=== PATIENT | female | born 1935 | race Caucasian/White ===

== ENCOUNTER → 2017-10-10 | Outpatient (CLI) | payer OTHER | LOC: HYPER 10-08 15:51 | DX: S80.811A Abrasion, right lower leg, initial encounter (principal); E11.9 Type 2 diabetes mellitus without complications; M19.90 Unspecified osteoarthritis, unspecified site; Z87.891 Personal history of nicotine dependence; Y99.8 Other external cause status; Y92.89 Other specified places as the place of occurrence of the external cause; Y93.89 Activity, other specified; X58.XXXA Exposure to other specified factors, initial encounter ==

== ENCOUNTER → 2017-10-24 | Outpatient (CLI) | payer OTHER | LOC: HYPER 06:49 | DX: S81.812D Laceration without foreign body, left lower leg, subsequent encounter (principal); S80.11XD Contusion of right lower leg, subsequent encounter; E11.9 Type 2 diabetes mellitus without complications; M19.90 Unspecified osteoarthritis, unspecified site; Z87.891 Personal history of nicotine dependence; X58.XXXD Exposure to other specified factors, subsequent encounter ==

== ENCOUNTER → 2017-11-07 | Outpatient (CLI) | payer OTHER | LOC: HYPER 06:41 | DX: S80.811D Abrasion, right lower leg, subsequent encounter (principal); S81.802D Unspecified open wound, left lower leg, subsequent encounter; L03.115 Cellulitis of right lower limb; S91.302A Unspecified open wound, left foot, initial encounter; M19.90 Unspecified osteoarthritis, unspecified site; E11.9 Type 2 diabetes mellitus without complications; Z87.891 Personal history of nicotine dependence; X58.XXXA Exposure to other specified factors, initial encounter; Y93.89 Activity, other specified; Y92.89 Other specified places as the place of occurrence of the external cause; X58.XXXD Exposure to other specified factors, subsequent encounter ==

== ENCOUNTER → 2017-11-21 | Outpatient (CLI) | payer OTHER | LOC: HYPER 06:37 | DX: S80.811D Abrasion, right lower leg, subsequent encounter (principal); S81.802D Unspecified open wound, left lower leg, subsequent encounter; S91.301D Unspecified open wound, right foot, subsequent encounter; E11.9 Type 2 diabetes mellitus without complications; M19.90 Unspecified osteoarthritis, unspecified site; Z87.891 Personal history of nicotine dependence; X58.XXXD Exposure to other specified factors, subsequent encounter ==

== ENCOUNTER → 2017-12-05 | Outpatient (CLI) | payer OTHER | LOC: HYPER 06:54 | DX: S81.812D Laceration without foreign body, left lower leg, subsequent encounter (principal); S91.301D Unspecified open wound, right foot, subsequent encounter; S80.811D Abrasion, right lower leg, subsequent encounter; M19.90 Unspecified osteoarthritis, unspecified site; L84 Corns and callosities; Z87.891 Personal history of nicotine dependence; X58.XXXD Exposure to other specified factors, subsequent encounter ==

== ENCOUNTER → 2017-12-19 | Outpatient (CLI) | payer OTHER | LOC: HYPER 08:15 | DX: S81.812D Laceration without foreign body, left lower leg, subsequent encounter (principal); S80.811D Abrasion, right lower leg, subsequent encounter; E11.621 Type 2 diabetes mellitus with foot ulcer; L97.511 Non-pressure chronic ulcer of other part of right foot limited to breakdown of skin; L89.893 Pressure ulcer of other site, stage 3; R21 Rash and other nonspecific skin eruption; R60.9 Edema, unspecified; M19.90 Unspecified osteoarthritis, unspecified site; Z87.891 Personal history of nicotine dependence; Z79.84 Long term (current) use of oral hypoglycemic drugs; X58.XXXD Exposure to other specified factors, subsequent encounter ==

== ENCOUNTER → 2018-01-07 | Outpatient (CLI) | payer OTHER | LOC: HYPER 07:01 | DX: S81.802D Unspecified open wound, left lower leg, subsequent encounter (principal); S91.301D Unspecified open wound, right foot, subsequent encounter; E11.9 Type 2 diabetes mellitus without complications; M19.90 Unspecified osteoarthritis, unspecified site; Z87.891 Personal history of nicotine dependence; X58.XXXD Exposure to other specified factors, subsequent encounter ==

== ENCOUNTER → 2018-01-28 | Outpatient (CLI) | payer OTHER | LOC: HYPER 07:03 | DX: S81.812D Laceration without foreign body, left lower leg, subsequent encounter (principal); S91.301D Unspecified open wound, right foot, subsequent encounter; L89.890 Pressure ulcer of other site, unstageable; R60.9 Edema, unspecified; R21 Rash and other nonspecific skin eruption; M19.90 Unspecified osteoarthritis, unspecified site; Z79.84 Long term (current) use of oral hypoglycemic drugs; Z87.891 Personal history of nicotine dependence; X58.XXXD Exposure to other specified factors, subsequent encounter ==

== ENCOUNTER → 2018-04-03 | Outpatient (CLI) | payer OTHER | LOC: HYPER 06:45 | DX: S81.812D Laceration without foreign body, left lower leg, subsequent encounter (principal); S91.301D Unspecified open wound, right foot, subsequent encounter; E11.621 Type 2 diabetes mellitus with foot ulcer; L97.411 Non-pressure chronic ulcer of right heel and midfoot limited to breakdown of skin; L89.613 Pressure ulcer of right heel, stage 3; R21 Rash and other nonspecific skin eruption; R60.9 Edema, unspecified; M19.90 Unspecified osteoarthritis, unspecified site; Z79.84 Long term (current) use of oral hypoglycemic drugs; Z87.891 Personal history of nicotine dependence; X58.XXXD Exposure to other specified factors, subsequent encounter ==

== ENCOUNTER → 2018-04-24 | Outpatient (CLI) | payer OTHER | LOC: HYPER 07:05 | DX: L89.613 Pressure ulcer of right heel, stage 3 (principal); S81.802D Unspecified open wound, left lower leg, subsequent encounter; M19.90 Unspecified osteoarthritis, unspecified site; Z79.84 Long term (current) use of oral hypoglycemic drugs; Z87.891 Personal history of nicotine dependence; X58.XXXD Exposure to other specified factors, subsequent encounter ==

== ENCOUNTER → 2018-05-13 | Outpatient (CLI) | payer OTHER | LOC: HYPER 07:29 | DX: E11.621 Type 2 diabetes mellitus with foot ulcer (principal); L89.613 Pressure ulcer of right heel, stage 3; L97.411 Non-pressure chronic ulcer of right heel and midfoot limited to breakdown of skin; M19.90 Unspecified osteoarthritis, unspecified site; Z79.84 Long term (current) use of oral hypoglycemic drugs; Z87.891 Personal history of nicotine dependence ==

== ENCOUNTER → 2018-06-03 | Outpatient (CLI) | payer OTHER | LOC: HYPER 06:54 | DX: E11.621 Type 2 diabetes mellitus with foot ulcer (principal); L97.411 Non-pressure chronic ulcer of right heel and midfoot limited to breakdown of skin; L89.613 Pressure ulcer of right heel, stage 3; S80.11XD Contusion of right lower leg, subsequent encounter; M19.90 Unspecified osteoarthritis, unspecified site; Z87.891 Personal history of nicotine dependence; Z79.84 Long term (current) use of oral hypoglycemic drugs; X58.XXXD Exposure to other specified factors, subsequent encounter ==

== ENCOUNTER → 2019-09-25 | Outpatient (CLI) | payer OTHER ==
[~2019-09-25] VITALS: Ht 149.9 cm; Wt 60.8 kg
[~2019-09-25] MED LIST: ASA81BEC PO; CLONAZEPAM 0.50.5 M1 PO; CYMBALTA60 MG PO; INDERAL LA 80 M80 M1 PO; JANUVIA100 MG PO; LIPITOR10 MG PO; LYRICA100 MG PO; NEXIUM40 MG PO; NORVASC5 MG PO; PROPYLTHIOURACI50 MG PO; TORSEMIDE10 MG PO; TRAMADOL 50 MG50 MG PO; VITAMIN D32000 UNIT PO
--- NOTE | ~2019-09-25 | P ---
[facility] [place] [address] PROCEDURE REPORT Name: AMELIA CORBETT [id number] Admission: 09/25/19 Attend Phys: Clint Russo MD Discharge: Date of : 35 Report #: [id number] THIS REPORT FOR: //name// CC: Albert Russo DATE OF SERVICE: 09/25/2019 BRIEF HISTORY: The patient is an 84-year-old woman who has a recent finding of iron deficiency anemia. She also feels that there is a structure in her rectum. She says it "feels as hard as bone." POSTOPERATIVE DIAGNOSES: 1. Multiple colon polyps. 2. Patchy proctitis. MEDICATIONS: Deep sedation with propofol per anesthesia. SPECIMENS: 1. Polyps x 2, cecum. 2. Polyp, hepatic flexure. 3. Biopsies of patchy proctitis. MEDICATIONS: Deep sedation with propofol per Anesthesia. ESTIMATED BLOOD LOSS: 3 mL. PROCEDURE: Colonoscopy to cecum and terminal ileum with snare polypectomy and biopsy. FINDINGS: Prior to propofol sedation, procedure of colonoscopy discussed with the patient as well as potential risks and its complications. She indicates she understands and desires to proceed. DESCRIPTION OF PROCEDURE: With the patient in left lateral decubitus position, digital examination was completed, which revealed no abnormalities. Specifically, I did not feel any mass lesions in the rectum. As far as the sensation she reports, she may be feeling the coccyx. Subsequently, the Olympus video colonoscope was introduced in the rectum, advanced under direct vision to the cecum. This was done with some difficulty through a tortuous redundant colon. Cecum was identified by the ileocecal valve and the appendiceal orifice. I was able to visualize the distal segment of terminal ileum, which was inspected and noted to be unremarkable. At that point, the scope was slowly withdrawn and careful circumferential views were obtained including retroflexing the scope through the ascending colon. Upon slow withdrawal of the scope, the [facility] [address] [place] [address] PROCEDURE REPORT Name: AMEILA CORBETT Room #: REG [facility].#: [id number] Admission: 09/25/19 Attend Phys: Clint Russo MD Discharge: Date of : 35 Report #: [id number] prep was somewhat limited. There was some liquidy stool scattered about. We irrigated and suctioned as much as possible. For the most part, we were able to obtain a reasonably good prep. However, in a couple areas we could not clean up all the material and a small lesion could have been overlooked. As we withdrew the scope, she was found to have a diminutive polyp in the cecum, removed with biopsy forceps and also a 5 mm flat polyp removed by cold snare polypectomy. As the scope was withdrawn, a diminutive polyp was seen and removed with biopsy forceps the hepatic flexure. The scope was further withdrawn and she was noted to have a tortuous and dilated proximal colon suggestive of chronic constipation. However, the mucosa remained within normal limits, normal vascular pattern, normal light reflex. The scope was withdrawn in the rectum and there was a patchy area of proctitis with very punctate ulcerations. This patchy area was about 2 x 2 cm. It had a benign appearance. The remainder of the rectum was unremarkable. On retroflexion, no additional abnormalities were seen. Multiple biopsies obtained of the proctitis. The patient tolerated the procedure well. CONDITION OF THE PATIENT UPON DISCHARGE: Following procedure, the patient drowsy, aroused, conversant and will be discharged home when fully ambulatory. INSTRUCTIONS TO THE PATIENT AND FAMILY AT THE TIME OF DISCHARGE: We will follow up on the pathology. The polyps were all small and had benign appearance. The patient is 84 years old. At this point in life, there is likely minimal benefit from continued surveillance colonoscopy. As far as the proctitis, an obvious etiology is not identified. We will follow up on the path. This is somewhat of an unusual presentation. The patient does report that she does place her finger in the rectum. We will discuss further whether she is inserting any other object into the rectum, which may have caused the proctitis. As far as this hard bony like structure, I do not see or feel anything other than the coccyx. At this point in time, we will treat empirically with hydrocortisone suppositories. She should return to see me in followup in the office. If she continues with rectal symptoms, rectal manometry may be helpful. Withdrawal time from the cecum was 18 minutes 19 seconds. By: 1152 1315 Clint Russo MD /nt
--- NOTE | ~2019-09-25 | P ---
[facility] [place] [address] PROCEDURE REPORT Name: AMELIA CORBETT Room #: REG [facility] Fede.#: [id number] Admission: 09/25/19 Attend Phys: Clint Russo MD Discharge: Date of : 35 Report #: [id number] THIS REPORT FOR: //name// CC: Albert Russo BRIEF HISTORY: The patient is an 84-year-old woman with findings of iron deficiency anemia. She has no GI symptoms such as heartburn or melanotic stools. PREOPERATIVE DIAGNOSIS: Iron deficiency anemia. POSTOPERATIVE DIAGNOSES: 1. Moderate diffuse gastritis. 2. Moderate hiatus hernia. 3. Tortuous distal esophagus. SPECIMENS: 1. Small bowel biopsies, rule out celiac disease. 2. Biopsies of gastritis. ESTIMATED BLOOD LOSS: 3 mL. PROCEDURE: EGD with biopsy. FINDINGS: Prior to propofol sedation, procedure of upper endoscopy discussed with the patient as well as potential risks and its complications. She indicates she understands and desires to proceed. DESCRIPTION OF PROCEDURE: With the patient in left lateral decubitus position, the Olympus video endoscope was inserted in the cervical esophagus under direct vision without difficulty. Examination of this organ through its entire length revealed normal esophageal mucosa down the squamocolumnar junction. Squamocolumnar junction was inspected and noted to be unremarkable. In addition, the mid esophagus was somewhat tortuous. The gastroesophageal junction was about 30 cm. The scope was advanced into the stomach and she was noted to have about a 4 cm sliding type hiatus hernia. The mucosa and hernia was unremarkable. No evidence of bleeding lesions, ulcers or erosions. The scope was advanced fully into the stomach, was examined on end view as well as retroflexed views. There was a pattern of a diffuse moderate linear gastritis. However, there were no ulcers, erosions or mass lesions. Biopsies obtained of the gastritis. AVMs were not seen. Upon retroflexion, the hernia was seen, but no other abnormalities were identified. The pylorus, duodenal bulb, and postbulbar duodenal sweep were inspected and noted to be unremarkable. Small bowel biopsies obtained to evaluate for celiac disease. At that point, the scope was slowly withdrawn and careful circumferential views confirmed the above [facility] [address] [place] [address] PROCEDURE REPORT Name: AMELIA CORBETT Room #: REG [facility].#: [id number] Admission: 09/25/19 Attend Phys: Clint Russo MD Discharge: Date of : 35 Report #: [id number] findings. The patient tolerated the procedure well. CONDITION OF THE PATIENT UPON DISCHARGE: Following procedure, the patient was drowsy and prepared for colonoscopy. INSTRUCTIONS TO THE PATIENT AND FAMILY AT THE TIME OF DISCHARGE: No bleeding lesions. We will follow up on biopsies as noted. Proceed with colonoscopy at this time for further evaluation of iron deficiency anemia. By: 1112 1157 Clint Russo MD /nt
--- NOTE | 2019-09-29 17:06 | PATH ---
[facility] [address] [place] [address] PATHOLOGY RPT PROCEDURE Name: STORMY WEIR Room #: REG JOSE CRUZ Montoya.Adia.#: [id number] Admission: 09/25/19 Date of : 35 Discharge: Report #: [id number] Path Case #: [id number] [facility] Accession Number: [id number] . 01 Material submitted: . PART A: small bowel - BX OF SMALL BOWEL PART B: stomach - BX OF GASTRITIS PART C: cecum - POLYP AT CECUM X2 PART D: hepatic flexure - POLYP AT HEPATIC FLEXURE PART E: rectum - BX OF PROCTITIS NEAR RECTUM . 01 Clinical history: . Pre-op diagnosis: Iron deficiency anemia Post-op diagnosis: Gastritis, hiatal hernia, colon polyps, proctitis A. R/O celiac regarding iron deficiency anemia B. R/O H. pylori . 02 Diagnosis: A. Small bowel mucosa, small bowel rule out celiac disease, endoscopic biopsy: - No diagnostic abnormalities present. - Negative for villous blunting or increase in intraepithelial lymphocytes. . B. Gastric mucosa, gastritis rule out H. pylori, endoscopic biopsy: - Mild reactive gastropathy. - Negative for intestinal metaplasia or dysplasia. - Negative for H. pylori (properly controlled immunohistochemical stain performed). . C. Polyp x2, cecum, endoscopic biopsy: - Tubular adenoma x2. - Negative for high-grade dysplasia. . D. Polyp, at hepatic flexure, endoscopic biopsy: - Tubular adenoma. - Negative for high-grade dysplasia. . E. Large intestinal mucosa, proctitis near rectum, endoscopic biopsy: - Superficial mucosal fragments showing hyperplastic changes. - No intact sample present/obtained for evaluation. - Negative for dysplasia within the hyperplastic mucosa. - Negative for active cryptitis within the superficial sample. . (IUV:inductor tester; 09/29/2019) MBR 09/29/2019 1357 Local . [address] [address] PATHOLOGY RPT PROCEDURE Name: STORMY WEIR [facility] [id number] Admission: 09/25/19 Date of : 35 Discharge: Report #: [id number] Path Case #: [id number] Electronically signed: . Kiana Meyer MD, Pathologist NPI- [id number] . 01 Gross description: . A. The specimen is received in formalin, labeled "Stormy Weir, biopsy of small bowel to R/O celiac". Received are five segments of pale lopez soft tissue ranging in size from 0.4 to 0.5 cm in maximum dimensions. The specimen is submitted entirely in cassette A1. . B. The specimen is received in formalin, labeled "Stormy Bunert, biopsy of gastritis to R/O H. pylori". Received are three segments of pale lopez soft tissue ranging in size from 0.4 to 0.5 cm in maximum dimensions. The specimen is submitted entirely in cassette B1. . C. The specimen is received in formalin, labeled "Stormy Bunert, polyp at cecum". Received are three segments of pale lopez soft tissue ranging in size from 0.3 to 0.5 cm in maximum dimensions. The specimen is submitted entirely in cassette C1. . D. The specimen is received in formalin, labeled "Stormy Bunert, polyp at hepatic flexure". Received is a segment of pale lopez soft tissue measuring 0.5 cm in maximum dimensions. The specimen is submitted entirely in cassette D1. . E. The specimen is received in formalin, labeled "Stormy Bunert, biopsies of proctitis near rectum". Received are two segments of pale lopez soft tissue ranging in size from 0.2 to 0.3 cm in maximum dimensions. The specimen is submitted entirely in cassette E1. (CAA; 09/26/2019) QAC/QAC 09/26/2019 1047 Local . 02 Pathologist provided ICD-10: K31.9, D12.0, D12.3, K44.9, K51.20 . 02 CPT . 413025, 799998, 376638, 297253, 111146 Specimen Comment: A courtesy copy of this report has been sent to [phone], [phone] Specimen Comment: [id number] Specimen Comment: Report sent to / DR SANCHEZ Performed at: 01 [facility] [address] [place] [address] [address], [place], [place] [id number] MD Vasyl Hook MD Phone: [phone] Performed at: 02 [facility] [address] [place], [place] [id number] [facility] [address] [place] [address] PATHOLOGY RPT PROCEDURE Name: STORMY WEIR Room #: REG JOSE CRUZ Mistry.#: [id number] Admission: 09/25/19 Date of : 35 Discharge: Report #: [id number] [facility] Case #: [id number] MD Kiana Meyer MA Phone: [phone]
== END | disposition home or self-care (01) ==
LOC: GI 09:55
DX: D50.9 Iron deficiency anemia, unspecified (principal); D12.0 Benign neoplasm of cecum; D12.3 Benign neoplasm of transverse colon; K51.20 Ulcerative (chronic) proctitis without complications; K31.9 Disease of stomach and duodenum, unspecified; K29.70 Gastritis, unspecified, without bleeding; K44.9 Diaphragmatic hernia without obstruction or gangrene; K22.8 Other specified diseases of esophagus; K21.9 Gastro-esophageal reflux disease without esophagitis; I10 Essential (primary) hypertension; E11.9 Type 2 diabetes mellitus without complications; E78.5 Hyperlipidemia, unspecified; I73.9 Peripheral vascular disease, unspecified; D64.9 Anemia, unspecified; F32.9 Major depressive disorder, single episode, unspecified; Z98.890 Other specified postprocedural states; Z79.899 Other long term (current) drug therapy; Z88.0 Allergy status to penicillin; Z91.041 Radiographic dye allergy status; Z88.2 Allergy status to sulfonamides; Z88.8 Allergy status to other drugs, medicaments and biological substances; Z79.82 Long term (current) use of aspirin
CPT/HCPCS: 62110; 62900

== ENCOUNTER → 2019-10-27 | Outpatient (CLI) | payer OTHER | LOC: HYPER 13:48 | DX: E11.622 Type 2 diabetes mellitus with other skin ulcer (principal); L97.812 Non-pressure chronic ulcer of other part of right lower leg with fat layer exposed; L97.211 Non-pressure chronic ulcer of right calf limited to breakdown of skin; L97.222 Non-pressure chronic ulcer of left calf with fat layer exposed; S91.114A Laceration without foreign body of right lesser toe(s) without damage to nail, initial encounter; I89.0 Lymphedema, not elsewhere classified; I87.2 Venous insufficiency (chronic) (peripheral); E07.89 Other specified disorders of thyroid; R60.0 Localized edema; M48.00 Spinal stenosis, site unspecified; M19.90 Unspecified osteoarthritis, unspecified site; F41.9 Anxiety disorder, unspecified; Z87.891 Personal history of nicotine dependence; Z79.84 Long term (current) use of oral hypoglycemic drugs; X58.XXXA Exposure to other specified factors, initial encounter; Y93.89 Activity, other specified; Y92.89 Other specified places as the place of occurrence of the external cause; Y99.8 Other external cause status ==

== ENCOUNTER → 2019-11-17 | Outpatient (CLI) | payer OTHER | LOC: HYPER 13:20 | DX: E11.622 Type 2 diabetes mellitus with other skin ulcer (principal); L97.212 Non-pressure chronic ulcer of right calf with fat layer exposed; S91.114D Laceration without foreign body of right lesser toe(s) without damage to nail, subsequent encounter; I89.0 Lymphedema, not elsewhere classified; R21 Rash and other nonspecific skin eruption; E07.89 Other specified disorders of thyroid; I10 Essential (primary) hypertension; I87.2 Venous insufficiency (chronic) (peripheral); R60.0 Localized edema; M48.00 Spinal stenosis, site unspecified; M19.90 Unspecified osteoarthritis, unspecified site; F41.9 Anxiety disorder, unspecified; Z79.84 Long term (current) use of oral hypoglycemic drugs; Z87.891 Personal history of nicotine dependence; X58.XXXD Exposure to other specified factors, subsequent encounter ==

== ENCOUNTER → 2019-12-01 | Outpatient (CLI) | payer OTHER | LOC: HYPER 11:58 | DX: E11.622 Type 2 diabetes mellitus with other skin ulcer (principal); L97.212 Non-pressure chronic ulcer of right calf with fat layer exposed; S41.102A Unspecified open wound of left upper arm, initial encounter; S41.101A Unspecified open wound of right upper arm, initial encounter; S91.114A Laceration without foreign body of right lesser toe(s) without damage to nail, initial encounter; I87.2 Venous insufficiency (chronic) (peripheral); I89.0 Lymphedema, not elsewhere classified; R21 Rash and other nonspecific skin eruption; M19.90 Unspecified osteoarthritis, unspecified site; F41.9 Anxiety disorder, unspecified; Z87.891 Personal history of nicotine dependence; Z79.84 Long term (current) use of oral hypoglycemic drugs; X58.XXXA Exposure to other specified factors, initial encounter; Y93.89 Activity, other specified; Y92.89 Other specified places as the place of occurrence of the external cause; Y99.8 Other external cause status ==

== ENCOUNTER → 2019-12-17 | Outpatient (CLI) | payer OTHER | LOC: HYPER 11:30 | DX: E11.622 Type 2 diabetes mellitus with other skin ulcer (principal); L97.812 Non-pressure chronic ulcer of other part of right lower leg with fat layer exposed; S91.114D Laceration without foreign body of right lesser toe(s) without damage to nail, subsequent encounter; I87.2 Venous insufficiency (chronic) (peripheral); I89.0 Lymphedema, not elsewhere classified; R21 Rash and other nonspecific skin eruption; F41.9 Anxiety disorder, unspecified; M19.90 Unspecified osteoarthritis, unspecified site; Z87.891 Personal history of nicotine dependence; Z79.84 Long term (current) use of oral hypoglycemic drugs; X58.XXXD Exposure to other specified factors, subsequent encounter ==

== ENCOUNTER → 2020-03-17 | Outpatient (CLI) | payer OTHER | LOC: HYPER 13:06 | DX: S81.801A Unspecified open wound, right lower leg, initial encounter (principal); L03.116 Cellulitis of left lower limb; L03.115 Cellulitis of right lower limb; R60.9 Edema, unspecified; E07.89 Other specified disorders of thyroid; I10 Essential (primary) hypertension; M19.90 Unspecified osteoarthritis, unspecified site; M48.00 Spinal stenosis, site unspecified; F41.9 Anxiety disorder, unspecified; Z87.891 Personal history of nicotine dependence; X58.XXXA Exposure to other specified factors, initial encounter; Y93.89 Activity, other specified; Y92.89 Other specified places as the place of occurrence of the external cause; Y99.8 Other external cause status ==

== ENCOUNTER → 2020-03-24 | Outpatient (CLI) | payer OTHER | LOC: HYPER 13:43 | DX: S81.821A Laceration with foreign body, right lower leg, initial encounter (principal); S81.812D Laceration without foreign body, left lower leg, subsequent encounter; L03.115 Cellulitis of right lower limb; L03.116 Cellulitis of left lower limb; R60.0 Localized edema; I87.2 Venous insufficiency (chronic) (peripheral); I89.0 Lymphedema, not elsewhere classified; I10 Essential (primary) hypertension; E07.89 Other specified disorders of thyroid; M48.00 Spinal stenosis, site unspecified; M19.90 Unspecified osteoarthritis, unspecified site; F41.9 Anxiety disorder, unspecified; Z87.891 Personal history of nicotine dependence; Z79.84 Long term (current) use of oral hypoglycemic drugs ==

== ENCOUNTER → 2020-04-01 | Outpatient (CLI) | payer OTHER | LOC: SJCVCIMAG 11:28 | DX: I87.2 Venous insufficiency (chronic) (peripheral) (principal) ==

== ENCOUNTER → 2020-04-14 | Outpatient (CLI) | payer OTHER | LOC: HYPER 13:48 | DX: S81.821D Laceration with foreign body, right lower leg, subsequent encounter (principal); S81.812D Laceration without foreign body, left lower leg, subsequent encounter; L03.115 Cellulitis of right lower limb; L03.116 Cellulitis of left lower limb; R60.0 Localized edema; E11.9 Type 2 diabetes mellitus without complications; E07.89 Other specified disorders of thyroid; I87.2 Venous insufficiency (chronic) (peripheral); I89.0 Lymphedema, not elsewhere classified; I10 Essential (primary) hypertension; M48.00 Spinal stenosis, site unspecified; M19.90 Unspecified osteoarthritis, unspecified site; F41.9 Anxiety disorder, unspecified; Z87.891 Personal history of nicotine dependence; Z79.84 Long term (current) use of oral hypoglycemic drugs; X58.XXXD Exposure to other specified factors, subsequent encounter ==

== ENCOUNTER → 2020-05-12 | Outpatient (CLI) | payer OTHER | LOC: HYPER 10:57 | PROVIDERS: ATTEND Emergency Medicine Emergency Medical Services | DX: S81.821D Laceration with foreign body, right lower leg, subsequent encounter (principal); S81.812D Laceration without foreign body, left lower leg, subsequent encounter; L03.115 Cellulitis of right lower limb; L03.116 Cellulitis of left lower limb; R60.0 Localized edema; I89.0 Lymphedema, not elsewhere classified; I87.2 Venous insufficiency (chronic) (peripheral); E11.9 Type 2 diabetes mellitus without complications; E07.89 Other specified disorders of thyroid; E78.00 Pure hypercholesterolemia, unspecified; M48.00 Spinal stenosis, site unspecified; M19.90 Unspecified osteoarthritis, unspecified site; F41.9 Anxiety disorder, unspecified; Z79.84 Long term (current) use of oral hypoglycemic drugs; Z87.891 Personal history of nicotine dependence; X58.XXXD Exposure to other specified factors, subsequent encounter ==

== ENCOUNTER → 2020-06-09 | Outpatient (CLI) | payer OTHER | LOC: HYPER 09:54 | PROVIDERS: ATTEND Emergency Medicine | DX: L03.115 Cellulitis of right lower limb (principal); L03.116 Cellulitis of left lower limb; S81.821D Laceration with foreign body, right lower leg, subsequent encounter; S81.812D Laceration without foreign body, left lower leg, subsequent encounter; I89.0 Lymphedema, not elsewhere classified; R60.0 Localized edema; E11.9 Type 2 diabetes mellitus without complications; E07.89 Other specified disorders of thyroid; I87.2 Venous insufficiency (chronic) (peripheral); I10 Essential (primary) hypertension; M48.00 Spinal stenosis, site unspecified; M19.90 Unspecified osteoarthritis, unspecified site; F41.9 Anxiety disorder, unspecified; Z79.84 Long term (current) use of oral hypoglycemic drugs; Z87.891 Personal history of nicotine dependence; X58.XXXD Exposure to other specified factors, subsequent encounter ==

== ENCOUNTER → 2020-06-23 | Outpatient (CLI) | payer OTHER | LOC: HYPER 08:54 | PROVIDERS: ATTEND Emergency Medicine Emergency Medical Services | DX: E11.622 Type 2 diabetes mellitus with other skin ulcer (principal); L97.211 Non-pressure chronic ulcer of right calf limited to breakdown of skin; S81.821D Laceration with foreign body, right lower leg, subsequent encounter; I87.2 Venous insufficiency (chronic) (peripheral); I10 Essential (primary) hypertension; I89.0 Lymphedema, not elsewhere classified; R60.0 Localized edema; E07.89 Other specified disorders of thyroid; M48.00 Spinal stenosis, site unspecified; M19.90 Unspecified osteoarthritis, unspecified site; F41.9 Anxiety disorder, unspecified; Z79.84 Long term (current) use of oral hypoglycemic drugs; Z87.891 Personal history of nicotine dependence; X58.XXXD Exposure to other specified factors, subsequent encounter ==

== ENCOUNTER → 2020-07-12 | Outpatient (CLI) | payer OTHER | LOC: HYPER 14:00 | PROVIDERS: ATTEND Emergency Medicine | DX: E11.622 Type 2 diabetes mellitus with other skin ulcer (principal); L97.211 Non-pressure chronic ulcer of right calf limited to breakdown of skin; S71.102A Unspecified open wound, left thigh, initial encounter; I89.0 Lymphedema, not elsewhere classified; I87.2 Venous insufficiency (chronic) (peripheral); L03.115 Cellulitis of right lower limb; R60.9 Edema, unspecified; M19.90 Unspecified osteoarthritis, unspecified site; F41.9 Anxiety disorder, unspecified; Z87.891 Personal history of nicotine dependence; Z79.84 Long term (current) use of oral hypoglycemic drugs; X58.XXXA Exposure to other specified factors, initial encounter; Y93.89 Activity, other specified; Y92.89 Other specified places as the place of occurrence of the external cause; Y99.8 Other external cause status ==

== ENCOUNTER → 2020-07-28 | Outpatient (CLI) | payer OTHER | LOC: HYPER 13:37 | PROVIDERS: ATTEND Emergency Medicine | DX: S71.102D Unspecified open wound, left thigh, subsequent encounter (principal); L03.115 Cellulitis of right lower limb; R60.0 Localized edema; E11.9 Type 2 diabetes mellitus without complications; I89.0 Lymphedema, not elsewhere classified; I87.2 Venous insufficiency (chronic) (peripheral); E07.89 Other specified disorders of thyroid; M48.00 Spinal stenosis, site unspecified; M19.90 Unspecified osteoarthritis, unspecified site; F41.9 Anxiety disorder, unspecified; Z79.84 Long term (current) use of oral hypoglycemic drugs; Z87.891 Personal history of nicotine dependence; W45.8XXD Other foreign body or object entering through skin, subsequent encounter ==

== ENCOUNTER → 2020-08-18 | Outpatient (CLI) | payer OTHER | LOC: HYPER 14:43 | PROVIDERS: ATTEND Emergency Medicine | DX: S71.102D Unspecified open wound, left thigh, subsequent encounter (principal); I89.0 Lymphedema, not elsewhere classified; R60.0 Localized edema; E11.9 Type 2 diabetes mellitus without complications; E07.89 Other specified disorders of thyroid; I87.2 Venous insufficiency (chronic) (peripheral); I10 Essential (primary) hypertension; M48.00 Spinal stenosis, site unspecified; M19.90 Unspecified osteoarthritis, unspecified site; F41.9 Anxiety disorder, unspecified; Z87.891 Personal history of nicotine dependence; Z79.84 Long term (current) use of oral hypoglycemic drugs ==